=== PATIENT | male | born 1995 | race Caucasian/White ===

== ENCOUNTER 2024-02-13 08:19 | Emergency (ER) | payer MEDICAID ==
[~2024-02-13] VITALS: Ht 182.9 cm; Wt 97.3 kg
[2024-02-13] MEDS: SODIUM CHLORIDE 0.9% 1,000 ML IV ONE ×3 (08:39→10:39)
[2024-02-13] MEDS: ONDANSETRON HCL 4 MG/2 ML VIAL IV ONE (08:39)
[2024-02-13 08:40] VITALS: PULSE 62; RESP 16; O2SAT 98
[2024-02-13] MEDS: METOCLOPRAMIDE HCL 5MG/ml INJ 2ml VIAL IV ONE (09:12)
[2024-02-13 09:13] LABS: Basophils # (auto) 0 10 ^3/uL (0-0.2); Basophils % (auto) 0.3 % (0.0-2.0); Eosinophils # (auto) 0.1 10 ^3/uL (0-0.8); Eosinophils % (auto) 0.9 % (0.0-7.0); Hematocrit 51.4 % (41.0-53.0); Hemoglobin 17.5 g/dL (13.5-17.5); Lymphocytes % (auto) 10.8 % (10.0-50.0); Mean Corpuscular Hemoglobin 31.5 pg (28.0-32.0); Mean Corpuscular Hgb Conc. 34.1 g/dL (32.0-36.0); Mean Corpuscular Volume 92.3 fL (80.0-100.0); Monocytes # (auto) 0.6 10 ^3/uL (0-1.3); Monocytes % (auto) 6.3 % (0.0-12.0); Neutrophils # (auto) 7.7 10 ^3/uL (1.6-8.6); Neutrophils % (auto) 81.7 % (37.0-80.0); Nucleated Red Blood Cells % 0.1 %; Red Blood Cells 5.57 10^6/uL (4.5-5.90); Red Cell Distribution Width 12.4 % (11.8-14.3); White Blood Cell 9.5 10^3/uL (4.4-10.8)
[2024-02-13] MEDS: MORPHINE SULFATE 4 MG/ML SYR/VIAL IV ONE (09:17)
[2024-02-13 09:18] LABS: Chloride 106 mmol/L (98-107); Sodium 141 mmol/L (136-145)
[2024-02-13 09:19] LABS: Anion Gap 8 (5-15); Calcium 10.5 mg/dL (8.7-10.4); Carbon Dioxide 27 mmol/L (20-30)
[2024-02-13 09:24] LABS: BUN/Creatinine Ratio 7.6 (10.0-20.0); Blood Urea Nitrogen 8 mg/dL (9-23); Glucose 152 mg/dL (74-106)
[2024-02-13 11:04] VITALS: O2SAT 99
[2024-02-13 11:18] LABS: Amphetamine Screen, Urine Neg (NEGATIVE); Barbiturate Scree,Urine Neg (NEGATIVE); Benzodiazephine Screen, Urine Neg (NEGATIVE); Cocaine Screen, Urine Neg (NEGATIVE); Opiate Scree,Urine Pos (NEGATIVE)
[2024-02-13 11:19] LABS: Cannabinoid Screen, Urine Pos (NEGATIVE); Phencyclidine Screen, Urine Neg (NEGATIVE)
[2024-02-13] MEDS: HYDROmorphone HCL 2 MG/ML VL/or syr IV ONE (11:24)
[2024-02-13] MEDS: PROCHLORPERAZINE EDISYLATE 5 MG/ML 2ML VIAL IV ONE (11:25)
[2024-02-13] MEDS ORDERED: DOCUSATE SOD 100 MG CAP PO PRN (11:30)
[2024-02-13] MEDS ORDERED: ONDANSETRON HCL 4 MG/2 ML VIAL IV PRN (11:30)
[2024-02-13] MEDS ORDERED: MORPHINE SULFATE INJ 2 MG/ml SYRG IV PRN (11:30)
[2024-02-13] MEDS: SODIUM CHLORIDE 0.9% 1,000 ML IV SCH (11:30)
[2024-02-13] MEDS: DICYCLOMINE HCL 10 MG CAP PO SCH (11:55)
[2024-02-13] MEDS: PANTOPRAZOLE 40 MG/10 ML VIAL INJ IV ONE (11:56)
[2024-02-13] MEDS: DICYCLOMINE HCL (10MG/ML) 2 ML AMPULE IM ONE (11:56)
[2024-02-13] MEDS ORDERED: HYDROmorphone HCL 2 MG/ML VL/or syr IV PRN (12:00)
[2024-02-13] MEDS ORDERED: LORazepam 2MG/ML-1ML VIAL IV PRN ×2 (12:00)
[2024-02-13 12:27] LABS: Blood Alcohol < 3.0 mg/dL (<10)
[2024-02-13 13:00] VITALS: BP 125/52; PULSE 67; RESP 16; TEMP 98.3; O2SAT 97
[2024-02-13 14:46] LABS: Lipase 27 U/L (12-53)
[2024-02-14] MEDS ORDERED: PANTOPRAZOLE 40 MG/10 ML VIAL INJ IV SCH (10:00)
== END 2024-02-13 14:17 | disposition left against medical advice (07) ==
LOC: ER 08:19
DX: F12.10 Cannabis abuse, uncomplicated (principal); R11.2 Nausea with vomiting, unspecified; R10.13 Epigastric pain; I10 Essential (primary) hypertension; F41.9 Anxiety disorder, unspecified; Z87.891 Personal history of nicotine dependence; Z88.8 Allergy status to other drugs, medicaments and biological substances; Z91.09 Other allergy status, other than to drugs and biological substances; Z79.899 Other long term (current) drug therapy
CPT/HCPCS: 36415; 73080; 80048; 80307; 80320; 83605; 83690; 85025; 96361; 96372; 96374; 96375; 99285; J0500; J0780; J1170; J2270; J2405; J2470; J2765; J7030